=== PATIENT | male | born 1980 | race Hispanic/Latino ===

== ENCOUNTER 2018-12-30 10:47 | Emergency (ER) | payer SELFPAY ==
--- NOTE | 2018-12-30 12:02 | RAD ---
3 VIEWS LEFT ANKLE: Date: 12/30/18 HISTORY: Injury to left ankle after playing soccer 6 days ago. FINDINGS/IMPRESSION: The ankle mortise is congruent. There is no evidence of a fracture, dislocation, or other osseous abn ormality involving the left ankle. POS: [facility]
== END 2018-12-30 12:30 | disposition home or self-care (01) ==
LOC: ERS 10:47
DX: S86.002A Unspecified injury of left Achilles tendon, initial encounter (principal); F17.210 Nicotine dependence, cigarettes, uncomplicated; Z71.6 Tobacco abuse counseling; Z87.891 Personal history of nicotine dependence; X50.1XXA Overexertion from prolonged static or awkward postures, initial encounter; Y93.66 Activity, soccer
CPT/HCPCS: 99406